=== PATIENT | female | born 2000 | race Caucasian/White ===

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

== ENCOUNTER 2019-02-07 06:29 | Inpatient (IN) ==
[~2019-02-07 06:29] MED LIST: ADRENALINE CHL INJ ONE; D5LR 1L W PITOCIN 10 UNITS/L 10 UNITS/1,000 ML BAG IV ONE; FENTANYL INJ 100 mcg ONE; LR 1000 ML IV 1,000 ML ONE; PITOCIN ONE
[2019-02-07] MEDS ORDERED: XYLOCAINE-MPF 1% ONE (06:30)
[2019-02-07] MEDS ORDERED: D5 1/2 NS 1000 ML 1,000 ML ONE (06:30)
[2019-02-07] MEDS ORDERED: D5 1/2 NS 1L W PITOCIN 20 UNITS/L 20 UNITS/1,000 ML BAG IV ONE (06:30)
[2019-02-07] MEDS ORDERED: NAROPIN EPIDURAL 0.2% + FENTANYL 90MCG 60 ML EPI ONE ×2 (06:30→14:29)
--- NOTE | 2019-02-07 07:02 | DR.OB ---
OB Quick Note - Assessment/Plan Assessment/Plan: L&D 02/07/19 at 6:55am S-No complaint. O-Afebrile,VSS [id number]=[id number] with good LTV, +accel, no decel. CTX=none CVX=1cm/75%/-1/VTX AROM with moderate meconium. FSE and IUPC placed. A-IUP at 38 0/7 weeks for induction Oligohydramnios P-Begin pitocin induction Amnioinfusion Anticipate
[2019-02-07] MEDS ORDERED: PITOCIN IVP ONE (07:16)
[2019-02-07] MEDS ORDERED: NUBAIN INJ 200 MG VIAL MULTIDOSE IVP PRN (07:16)
[2019-02-07] MEDS ORDERED: MORPHINE SULFATE INJ 2 MG INJ IVP PRN (07:16)
[2019-02-07] MEDS ORDERED: D5LR 1L W PITOCIN 10 UNITS/L 10 UNITS/1,000 ML BAG IV PRN (07:16)
[2019-02-07] MEDS ORDERED: D5 1/2 NS 1000 ML 1,000 ML IV SCH (07:16)
[2019-02-07] MEDS ORDERED: PHENERGAN INJ 25 MG IM PRN ×2 (07:16→17:47)
[2019-02-07] MEDS ORDERED: REGLAN INJ 10 MG VIAL IVP PRN (07:16)
--- NOTE | 2019-02-07 12:05 | DR.OB ---
OB Quick Note - Assessment/Plan Assessment/Plan: L&D 02/07/19 at 11:55am Pitocin=16mu/min. S-No complaint. s/p epidural. O-Afebrile,VSS [id number] with good LTV, +accel, no decel. CTX=q 1 1/2 min., about 35-40mmHg CVX=2-3cm/90%/0 A-IUP at 38 0/7 weeks for induction Oligohydramnios P-Cont. pitocin induction Anticipate .
[2019-02-07] MEDS ORDERED: LR 1000 ML IV 1,000 ML ONE (15:13)
[2019-02-07] MEDS ORDERED: NS 1000 ML 1,000 ML ONE (15:13)
--- NOTE | 2019-02-07 17:47 | DR.OB ---
OB Quick Note - Assessment/Plan Assessment/Plan: Delivery Note [employer] 02/07/19 at 5:40pm Patient complete and pushing. Head delivered over intact perineum. No nuchal cord. Nose and mouth bulb suctioned. Body delivered over intact perineum. Late meconium noted. Cord clamped x 2 and cut. handed to attendant. Cord sent for gases. Placenta delivered spontaneously / intact / 3 vessel cord. No CVX / vaginal / perineal tears. Viable male , VTX/OA, wt=6'15" and 9/9, stable to NBN. Mother stable to RR. [id number].
[2019-02-07] MEDS: D5 1/2 NS 1000 ML 1,000 ML with PITOCIN 20 UNITS IV SCH ×2 (18:00)
[2019-02-07] MEDS ORDERED: MILK OF MAGNESIA PO PRN (18:54)
[2019-02-07] MEDS ORDERED: DERMOPLAST SPRAY TOP PRN (18:54)
[2019-02-07] MEDS ORDERED: ADACEL or BOOSTRIX TDaP VACCINE IM ONE (18:54)
[2019-02-07] MEDS ORDERED: AMBIEN PO PRN (18:54)
[2019-02-07] MEDS ORDERED: MOTRIN TAB 800 MG PO PRN (18:54)
[2019-02-07] MEDS: MOTRIN TAB 800 MG PO PRN (21:14)
[2019-02-07] MEDS: ZANTAC PO SCH (22:36)
[2019-02-08] MEDS: D5 1/2 NS 1000 ML 1,000 ML with PITOCIN 20 UNITS IV SCH ×2 (01:01)
[2019-02-08 06:07] LABS: HEMATOCRIT 32.5 % (36.0-47.0); HEMOGLOBIN 10.9 g/dL (12.0-16.0)
[2019-02-08] MEDS: ZANTAC PO SCH ×2 (08:30→21:06)
[2019-02-08] MEDS: PRENATAL PLUS PO SCH (08:30)
[2019-02-08] MEDS: MOTRIN TAB 800 MG PO PRN (21:06)
[2019-02-09] MEDS: ZANTAC PO SCH (08:32)
[2019-02-09] MEDS: PRENATAL PLUS PO SCH (08:32)
[2019-02-09 11:49] VITALS: BP 121/69
== END 2019-02-09 12:45 | disposition home or self-care (01) | DRG 807 ==
LOC: LD 06:29 → MED/SURG 18:52
PROVIDERS: ADMIT Specialist; ATTEND Specialist
DX: Z37.0 Single live birth; O41.03X0 Oligohydramnios, third trimester, not applicable or unspecified; Z3A.38 38 weeks gestation of pregnancy; Z01.818 Encounter for other preprocedural examination; O26.893 Other specified pregnancy related conditions, third trimester
CPT/HCPCS: 36415; 59409; 80048; 80307; 81001; 84112; 85014; 85018; 85025; 86592; 86850; 86900; 86901; 99284; A4216; A4222; S0197; G0434; J0171; J2590; J3010; J7030; J7120; S5010

== ENCOUNTER 2020-12-24 06:30 | Inpatient (IN) ==
[2020-12-24] MEDS ORDERED: BETADINE SOLN ONE (06:40)
[2020-12-24] MEDS ORDERED: D5 1/2 NS 1000 ML 1,000 ML IV ONE (06:40)
[2020-12-24] MEDS ORDERED: PITOCIN ONE (06:40)
[2020-12-24] MEDS ORDERED: D5LR 1L W PITOCIN 10 UNITS/L 10 UNITS/1,000 ML BAG IV ONE (06:41)
[2020-12-24] MEDS ORDERED: D5 1/2 NS 1L W PITOCIN 20 UNITS/L 20 UNITS/1,000 ML BAG IV ONE (06:41)
--- NOTE | 2020-12-24 07:02 | DR.OB ---
OB Quick Note - Assessment/Plan Assessment/Plan: L&D 12/24/20 at 7:00am S-No complaint. O-Afebrile,VSS [id number]=326 with good LTV, +accel, no decel. CTX=none CVX=2cm/50%/-1/VTX AROM with clear fluid. IUPC and FSE placed. A-IUP at 39 0/7 weeks for induction P-Begin pitocin induction Anticipate
[2020-12-24] MEDS ORDERED: PHENERGAN INJ 25 MG IM PRN ×2 (07:43→16:45)
[2020-12-24] MEDS ORDERED: D5 1/2 NS 1000 ML 1,000 ML IV SCH (07:43)
[2020-12-24] MEDS ORDERED: MORPHINE SULFATE INJ 2 MG INJ IVP PRN (07:43)
[2020-12-24] MEDS ORDERED: PITOCIN IVP ONE (07:43)
[2020-12-24] MEDS ORDERED: D5LR 1L W PITOCIN 10 UNITS/L 10 UNITS/1,000 ML BAG IV PRN (07:43)
[2020-12-24] MEDS ORDERED: NUBAIN INJ 200 MG VIAL MULTIDOSE IVP PRN (07:43)
[2020-12-24] MEDS ORDERED: REGLAN INJ 10 MG VIAL IVP PRN (07:43)
[2020-12-24] MEDS ORDERED: STADOL INJ IVP PRN (07:44)
[2020-12-24] MEDS ORDERED: FENTANYL INJ 100 mcg ONE (08:44)
[2020-12-24] MEDS ORDERED: STADOL INJ ONE (08:44)
[2020-12-24] MEDS ORDERED: LR 1000 ML IV 1,000 ML IV ONE (08:44)
[2020-12-24] MEDS ORDERED: NAROPIN EPIDURAL 0.2% 100 ML ONE (08:44)
--- NOTE | 2020-12-24 11:52 | DR.OB ---
OB Quick Note - Assessment/Plan Assessment/Plan: L&D 12/24/20 at 11:50am Pitocin=16mu/min. S-No complaint. s/p epidural. O-Afebrile,VSS LCW=533 with good LTV, +accel, no decel. CTX=q 1 1/2 to 2 min., about 45-65mmHg CVX=3cm/75%/-1 A-IUP at 39 0/7 weeks for induction P-Cont. pitocin induction Anticipate
[2020-12-24] MEDS ORDERED: XYLOCAINE 2 % (PLAIN) ONE (14:39)
[2020-12-24] MEDS ORDERED: REGLAN INJ 10 MG VIAL ONE (15:06)
--- NOTE | 2020-12-24 16:45 | DR.OB ---
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 Head delivered over intact perineum. No nuchal cord. Nose and mouth bulb suctioned. Body delivered over intact perineum. Cord clamped x 2 and cut. handed to attendant. Cord sent for gases. Placenta delivered spontaneously / intact / 3 vessel cord. No CVX / vaginal / perineal tears. Viable male , VTX/OA, wt=6'8" and 9/9, stable to NBN. Mother stable to RR. [id number].
[2020-12-24] MEDS: D5 1/2 NS 1000 ML 1,000 ML with PITOCIN 20 UNITS IV SCH ×2 (17:00)
[2020-12-24] MEDS ORDERED: ADACEL or BOOSTRIX TDaP VACCINE IM ONE (17:56)
[2020-12-24] MEDS ORDERED: DERMOPLAST PAIN RELIEF SPRAY TOP PRN (17:56)
[2020-12-24] MEDS ORDERED: MILK OF MAGNESIA PO PRN (17:56)
[2020-12-24] MEDS ORDERED: AMBIEN PO PRN (17:56)
[2020-12-24] MEDS: MOTRIN TAB 800 MG PO PRN (19:46)
[2020-12-25] MEDS ORDERED: D5 1/2 NS 1000 ML 1,000 ML IV ONE (01:00)
[2020-12-25] MEDS: D5 1/2 NS 1000 ML 1,000 ML with PITOCIN 20 UNITS IV SCH ×4 (01:02→09:20)
[2020-12-25] MEDS: MOTRIN TAB 800 MG PO PRN (02:36)
[2020-12-25 05:49] LABS: HEMATOCRIT 33.4 % (36.0-47.0); HEMOGLOBIN 11.3 g/dL (12.0-16.0)
[2020-12-25] MEDS ORDERED: DEPO-PROVERA CONTRACEPTIVE INJ IM ONE ×2 (07:45→10:24)
[2020-12-25] MEDS ORDERED: PRENATAL PLUS PO SCH (09:00)
[2020-12-25] MEDS ORDERED: ADACEL or BOOSTRIX TDaP VACCINE IM ONE (10:24)
[2020-12-25 16:13] VITALS: BP 112/80
== END 2020-12-25 18:30 | disposition home or self-care (01) | DRG 807 ==
LOC: LD 06:30 → MED/SURG 17:56
PROVIDERS: ADMIT Specialist; ATTEND Specialist
DX: Z37.0 Single live birth; Z3A.39 39 weeks gestation of pregnancy; Z01.818 Encounter for other preprocedural examination; O80 Encounter for full-term uncomplicated delivery

== ENCOUNTER 2022-05-15 06:35 | Inpatient (IN) ==
[2022-05-15] MEDS ORDERED: PITOCIN ONE (06:40)
[2022-05-15] MEDS ORDERED: D5 1/2 NS 1,000 ML 1,000 ML IV ONE (06:40)
[2022-05-15] MEDS ORDERED: BETADINE SOLN ONE (06:41)
[2022-05-15] MEDS ORDERED: D5 LR + PITOCIN 10 UNITS/L 10 UNITS/1,000 ML BAG IV ONE (06:41)
[2022-05-15] MEDS ORDERED: D5 1/2 NS 1,000 mL + PITOCIN 20 UNITS/L IV 20 UNITS/1,000 ML BAG IV ONE (06:42)
--- NOTE | 2022-05-15 07:21 | DR.OB ---
OB Quick Note - Assessment/Plan Assessment/Plan: L&D 05/15/22 at 7:00am S-No complaint. O-Afebrile,VSS LFE=311 with good LTV, +accel, no decel. CTX=q 2-3 min., mild by palpation CVX=2cm/50%/-1/VTX AROM with clear fluid. IUPC and FSE placed. A-IUP at 38 6/7 weeks for induction P-Begin pitocin induction Anticipate
[2022-05-15] MEDS ORDERED: PITOCIN IVP ONE (07:33)
[2022-05-15] MEDS ORDERED: MORPHINE SULFATE INJ 2 MG INJ IVP PRN (07:33)
[2022-05-15] MEDS ORDERED: REGLAN INJ 10 MG VIAL IVP PRN (07:33)
[2022-05-15] MEDS ORDERED: NUBAIN INJ 200 MG VIAL MULTIDOSE IVP PRN (07:33)
[2022-05-15] MEDS ORDERED: D5 LR + PITOCIN 10 UNITS/L 10 UNITS/1,000 ML BAG IV PRN (07:33)
[2022-05-15] MEDS ORDERED: D5 1/2 NS 1,000 ML 1,000 ML IV SCH (07:33)
[2022-05-15] MEDS ORDERED: PHENERGAN INJ 25 MG IM PRN ×2 (07:33→14:58)
[2022-05-15] MEDS ORDERED: STADOL INJ IVP PRN (07:34)
[2022-05-15] MEDS ORDERED: LR 1,000 ML IV 1,000 ML IV ONE (09:04)
[2022-05-15] MEDS ORDERED: FENTANYL VIAL INJ 100 mcg ONE (09:11)
--- NOTE | 2022-05-15 12:38 | DR.OB ---
OB Quick Note - Assessment/Plan Assessment/Plan: L&D 05/15/22 at 12:30pm Pitocin=18mu/min. S-No complaint. s/p epidural. O-Afebrile,VSS [id number] with good LTV, +accel, no decel. CTX=q 1 1/2 to 2 min., about 45-55 mmHg CVX=7cm/75%/0 A-IUP at 38 6/7 weeks for induction P-Continue pitocin induction Anticipate
[2022-05-15] MEDS ORDERED: MOTRIN TAB 800 MG PO PRN (14:58)
[2022-05-15] MEDS: D5 1/2 NS 1,000 ML 1,000 ML with PITOCIN 20 UNITS IV SCH ×2 (15:00)
[2022-05-15] MEDS ORDERED: STADOL INJ ONE (15:42)
[2022-05-15] MEDS ORDERED: ADACEL or BOOSTRIX TDaP VACCINE IM ONE (16:00)
[2022-05-15] MEDS ORDERED: DERMOPLAST PAIN RELIEF SPRAY TOP PRN (16:00)
[2022-05-15] MEDS ORDERED: MILK OF MAGNESIA PO PRN (16:00)
[2022-05-15] MEDS ORDERED: AMBIEN PO PRN (16:00)
--- NOTE | 2022-05-15 16:59 | DR.OB ---
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 Head delivered over intact perineum. No nuchal cord. Nose and mouth bulb suctioned. Body delivered over intact perineum. Cord clamped x 2 and cut. Infant handed to attendant. Cord sent for gases. Placenta delivered spontaneously / intact / 3 vessel cord. No CVX / vaginal / perineal tears noted. Viable male infant, VTX/OA, wt=7'14" and 9/9, stable to NBN. Mother stable to RR. [id number].
[2022-05-15] MEDS: PERCOCET TAB 5/325 MG PO PRN (21:09)
[2022-05-16] MEDS: D5 1/2 NS 1,000 ML 1,000 ML with PITOCIN 20 UNITS IV SCH ×6 (01:05→16:05)
[2022-05-16] MEDS: PERCOCET TAB 5/325 MG PO PRN (05:08)
[2022-05-16 05:31] LABS: HEMATOCRIT 29.1 % (36.0-47.0); HEMOGLOBIN 9.8 g/dL (12.0-16.0)
[2022-05-16] MEDS ORDERED: DEPO-PROVERA CONTRACEPTIVE INJ IM ONE (07:14)
[2022-05-16] MEDS ORDERED: PRENATAL PLUS PO SCH (09:00)
[2022-05-16 15:18] VITALS: BP 127/88
== END 2022-05-16 15:45 | disposition home or self-care (01) | DRG 806 ==
LOC: LD 06:35 → MED/SURG 16:18
PROVIDERS: ADMIT Specialist; ATTEND Specialist
DX: Z01.818 Encounter for other preprocedural examination; O99.891 Other specified diseases and conditions complicating pregnancy; Z3A.38 38 weeks gestation of pregnancy; Z01.812 Encounter for preprocedural laboratory examination; O98.513 Other viral diseases complicating pregnancy, third trimester; Z37.0 Single live birth; Z20.822 Contact with and (suspected) exposure to COVID-19; N87.0 Mild cervical dysplasia